=== PATIENT | female | born 1980 | race Caucasian/White ===

== ENCOUNTER → 2017-12-05 13:11 | Outpatient (CLI) | payer BC, SELFPAY ==
[2017-12-10 17:20] LABS: HPV Reflexed? NOT INDICATED
== END ==
PROVIDERS: Visit Provider Obstetrics & Gynecology
DX: Z12.4 Encounter for screening for malignant neoplasm of cervix (principal)
CPT/HCPCS: 88175; G0145

== ENCOUNTER → 2017-12-25 13:03 | Outpatient (CLI) | payer BC, SELFPAY ==
--- NOTE | 2017-12-25 | VUL_PTH ---
PATIENT: LEONARD VAZQUEZ LOC: [facility] U#:[id number] AGE/SX: 45/F ROOM: RE12/25/[address]: Dr. Antonio Machuca MD : 1980 BED: DIS: SPEC #: [id number] RECD: 12/26/17 08:04 STATUS: BRI SHANTHI #: [id number] PERLA: 12/25/17 00:[address]: Antonio Machuca DEPT: SURGICAL PATHOLOGY RECD BY: Luis Scales Tissues: Vulva, NOS Procedures: Special Stain Group I Surgery Specimen Level IV GMS Stain (control) HEADER OPERATION: Vulvar biopsy PRE-OP DIAGNOSIS: L91.0 TISSUE SUBMITTED: Vulvar biopsy MICROSCOPIC DIAGNOSIS Vulvar biopsy: Fragments of squamous mucosa with mild chronic inflammation. Special stain for fungi is negative for organisms; matched control is appropriate. SJ:erika 12/27/17 MICROSCOPIC DESCRIPTION Slides are reviewed. GROSS DESCRIPTION Received in fixative is one container labeled with the patient's name and designated vulvar biopsy. The specimen consists of two pieces of brothers mucosal tissue that in aggregate measure 1 x 0.5 x 0.3 cm. The entire specimen is submitted in one cassette. / SJ:erika 12/26/17 TC:3 CPT: 82835, 77992
== END ==
PROVIDERS: Visit Provider Obstetrics & Gynecology
DX: L91.0 Hypertrophic scar (principal)
CPT/HCPCS: 88305; 88312

== ENCOUNTER → 2019-05-26 15:16 | Outpatient (CLI) | payer BC, SELFPAY ==
[2019-05-26 14:34] VITALS: BMI 29.9
[2019-05-26 16:27] LABS: Absolute Lymphocyte Count 1.67 X10^3/uL (0.83-4.51); Absolute Neutrophil Count 6.4 X10^3/uL (2.0-7.7); Basophil# 0.09 X10^3/uL; Eosinophils% 2.3 % (0-5); Hematocrit 44.1 % (37-47); Hemoglobin 14.9 g/dL (12.0-15.0); Lymphocyte # 1.67 X10^3/ul (4.0); Lymphocyte % 18.8 % (19-41); Mean Corp Hgb Conc 33.8 g/dL (32-36); Mean Corpuscular Volume 88.9 fL (81-99); Mean Platelet Vol. 8.9 fl (6.2-12.0); Monocyte# 0.49 X10^3/uL; Monocyte% 5.5 % (0-10); NRBC Flagged by Analyzer 0 % (0-5); Neutrophil % 72.1 % (47-70); Platelet Count 279 K/mm3 (150-450); RBC Distribution Width CV 12.1 % (11.6-14.6); RBC Distribution Width SD 39.1 fl (35.1-43.9); Red Blood Count 4.96 M/mm3 (4.2-5.4); White Blood Count 8.9 K/mm3 (4.4-11.0)
[2019-05-26 16:51] LABS: T4 Free Direct 1.04 ng/dL (0.76-1.46); Thyroid Stim Hormone (TSH) 0.75 uIU/mL (0.358-3.74)
== END ==
PROVIDERS: Family Provider Internal Medicine; PCP Internal Medicine; Referring Provider Obstetrics & Gynecology; Visit Provider Obstetrics & Gynecology
DX: N93.9 Abnormal uterine and vaginal bleeding, unspecified (principal)
CPT/HCPCS: 36415; 84439; 84443; 85025

== ENCOUNTER → 2019-06-09 11:14 | Outpatient (CLI) | payer BC, SELFPAY ==
[2019-05-26 14:34] VITALS: BMI 29.9
--- NOTE | 2019-06-09 11:18 | US_ITS ---
STUDY: ULTRASOUND OF THE FEMALE PELVIS - COMPLETE REASON FOR EXAM: Female, 39 years old. Abnormal uterine bleeding. LMP: June 01, 2019 TECHNIQUE: Transabdominal and Transvaginal TECHNICAL QUALITY: Adequate. COMPARISON: None. FINDINGS: The uterus is anteverted and is in a midline position. The uterus measures 8.7 cm x 4.5 cm x 4.2 cm. There is a Nabothian cyst of the cervix. The endometrium measures 5.7 mm in thickness, and is hyperechoic. There is no demonstrated endometrial mass. There is no demonstrated myometrial mass. I.U.D. - The patient does not have an I.U.D. The right ovary is visualized. The right ovary measures 2.4 cm x 1.6 cm x 1.9 cm. There is no right ovarian cyst or ovarian mass. There is no visualized right adnexal mass or complex lesion. There is normal arterial and normal venous vascularity. The left ovary is visualized. The left ovary measures 1.9 cm x 2.1 cm x 2.1 cm. There is no left ovarian cyst or ovarian mass. There is no visualized left adnexal mass or complex lesion. There is normal arterial and normal venous vascularity. There is no fluid in the cul-de-sac. The pre void volume of the bladder was 416 ml. Polycystic ovary disease: No. US/Pelvic (Non ) IMPRESSION: Normal female pelvis. Electronically Signed: Saw Meade, at 10:18 EST , Service support ,
--- NOTE | 2019-06-09 11:18 | US_ITS ---
STUDY: ULTRASOUND OF THE FEMALE PELVIS - COMPLETE REASON FOR EXAM: Female, 39 years old. Abnormal uterine bleeding. LMP: June 01, 2019 TECHNIQUE: Transabdominal and Transvaginal TECHNICAL QUALITY: Adequate. COMPARISON: None. FINDINGS: The uterus is anteverted and is in a midline position. The uterus measures 8.7 cm x 4.5 cm x 4.2 cm. There is a Nabothian cyst of the cervix. The endometrium measures 5.7 mm in thickness, and is hyperechoic. There is no demonstrated endometrial mass. There is no demonstrated myometrial mass. I.U.D. - The patient does not have an I.U.D. The right ovary is visualized. The right ovary measures 2.4 cm x 1.6 cm x 1.9 cm. There is no right ovarian cyst or ovarian mass. There is no visualized right adnexal mass or complex lesion. There is normal arterial and normal venous vascularity. The left ovary is visualized. The left ovary measures 1.9 cm x 2.1 cm x 2.1 cm. There is no left ovarian cyst or ovarian mass. There is no visualized left adnexal mass or complex lesion. There is normal arterial and normal venous vascularity. There is no fluid in the cul-de-sac. The pre void volume of the bladder was 416 ml. Polycystic ovary disease: No. US/Transvaginal Non- IMPRESSION: Normal female pelvis. Electronically Signed: Saw Meade, at 10:18 EST , Service support ,
== END ==
PROVIDERS: Family Provider Internal Medicine; PCP Internal Medicine; Referring Provider Obstetrics & Gynecology; Visit Provider Obstetrics & Gynecology
DX: N93.9 Abnormal uterine and vaginal bleeding, unspecified (principal)
CPT/HCPCS: 76830; 76856; 93976

== ENCOUNTER 2020-02-25 21:20 | Emergency (ER) | payer BC, SELFPAY ==
[2019-12-03 14:58] VITALS: BMI 31.2
[2020-02-25 21:21] VITALS: BP 152/90; PULSE 85; RESP 16; TEMP 36.4; O2SAT 99; BMI 31.6
--- NOTE | 2020-02-25 21:47 | CT_ITS ---
STUDY: CT BRAIN WITHOUT CONTRAST REASON FOR EXAM: Female, 39 years old. INJURY,HIT IN LT SIDE OF FACE,BRUISING AND LACERATION RADIATION DOSAGE (If Supplied By Facility): CTDIvol = ( 44.99 ) mGy, DLP = ( 796.11 ) mGycm TECHNIQUE: Transaxial CT imaging of the brain was performed without administration of intravenous contrast material. Individualized dose optimization techniques were used for this CT. COMPARISON: No relevant priors. FINDINGS: Infraorbital facial emphysema is noted on the left. Negative for skull fracture. Normal size ventricles and extra-axial spaces for the patient''s age. Normal white matter tracts of the cerebral hemispheres. Normal basal ganglia and thalami. Normal brainstem. Normal cerebellum. There is no intracranial hemorrhage. There are no findings of an acute ischemic infarction. Normal visualized paranasal sinuses. CT/Brain/Head without Contrast IMPRESSION: Normal unenhanced CT scan of the brain. Negative for hemorrhage, hematoma or mass density. Negative for skull fracture. Negative for facial fracture identified in the [id number]. Infraorbital soft tissue emphysema is noted on the left. Electronically Signed: Mary Jane Nicole MD at 22:11 EDT , Service support ,
--- NOTE | 2020-02-25 21:47 | CT_ITS ---
STUDY: CT FACIAL BONES WITHOUT CONTRAST REASON FOR EXAM: Female, 39 years old. INJURY,HIT IN LT SIDE OF FACE,BRUISING AND LACERATION RADIATION DOSAGE (If Supplied By Facility): CTDIvol = ( 29.38 ) mGy, DLP = ( 562.15 ) mGycm TECHNIQUE: The patient was scanned in a multi detector CT scanner. Sagittal and coronal images were reconstructed. Individualized dose optimization techniques were used for this CT. COMPARISON: None. FINDINGS: Subcutaneous contusion of the left face and infraorbital emphysema. Normal orbital robledo and orbital contents. Normal nasal bones and anterior nasal spine. Normal facial bones. There is no demonstrated fracture. Normal visualized paranasal sinuses. CT/Sinus/Facial Bone IMPRESSION: Contusion of the left face and infraorbital emphysema on the left without a detected orbital or other facial fracture. Paranasal sinuses are clear on the left with no bleeding or fluid retention. Mucosal thickening in one right posterior sphenoethmoidal sinus. Electronically Signed: Mary Jane Nicole MD at 22:16 EDT , Service support ,
--- NOTE | 2020-02-25 21:48 | ED.DCSUM_ITS ---
History of Present Illness Chief Complaint: Head Injury Informant: Patient Narrative: Patient was hit in the face with a tractor hitch that came off while she was pulling a small trailer. This is on a long bar which is like a lever which hit her in the left side of her face. She has left periorbital swelling. She had no loss of consciousness. She not on blood thinners. She has a small laceration and swelling in that area. She also has a large scratch on the left arm. This is not deep and bleeding is controlled. Patient denies headache, nausea, vomiting, dizziness Past Medical History - Allergies and Home Meds Allergies/Adverse Reactions: Allergies No Known Allergies Allergy (Verified 02/25/20 21:23) Primary Care Physician: Kay Smith MD [Primary Care Provider] - Prior records reviewed: Yes Lives: Spouse/ Significant Other Smoking Status: Never smoker Alcohol: None Drugs: None Review of Systems General: Denies: Chills, Fever Eyes: Denies: Visual changes - bilaterally, Diplopia ENT: Reports: - - Facial contusion under left eye. Denies: Rhinorrhea, Sore throat Cardiovascular: Denies: Chest pain, Palpitations Respiratory: Denies: Dyspnea, Cough, Dyspnea on exertion Gastrointestinal: Reports: Abdominal pain. Denies: Nausea, Vomiting, Diarrhea, Melena, Hematochezia Skin: Reports: - - 15 cm superficial abrasion to the left upper extremity. Small contusion abrasion under the left eye Neurological: Denies: Headache, Parasthesia Physical Exam Vital Signs/Narrative: Vital Signs Temp Pulse Resp BP Pulse Ox 02/25/20 21:21 97.6 F L 85 16 152/90 H 99 Inital Vital Signs reviewed: Yes General: Well nourished, Well developed Head: Normocephalic, Trauma - Facial contusion with swelling approximately 4 cm circular under left eye. Superficial abrasion noted to be in the center. It is tender to palpation. Eyes: Perrl, EOMI, - - Patient able to count fingers bilaterally. No extraocular muscle entrapment. ENT: - - Nasal bone trauma. No epistaxis. Cardiovascular: Regular rate, Regular rhythm Respiratory: No distress Skin: - - No swelling noted under left eye. 15 cm abrasion left upper extremity. Neurological: Alert, Oriented x3, Cranial nerves II-XII grossly intact, Normal Strength, Normal Sensation Psychological: Normal affect Diagnostic/Tx/Re-eval Clinical Impression(s) from Imaging Studies Brain CT 02/25/20 21:47 IMPRESSION: Normal unenhanced CT scan of the brain. Negative for hemorrhage, hematoma or mass density. Negative for skull fracture. Negative for facial fracture identified in the [id number]. Infraorbital soft tissue emphysema is noted on the left. Electronically Signed: Mary Jane Nicole MD at 22:11 EDT , Service support , Facial/Sinus 02/25/20 21:47 IMPRESSION: Contusion of the left face and infraorbital emphysema on the left without a detected orbital or other facial fracture. Paranasal sinuses are clear on the left with no bleeding or fluid retention. Mucosal thickening in one right posterior sphenoethmoidal sinus. Electronically Signed: Mary Jane Nicole MD at 22:16 EDT , Service support , - Medical Decision Making Patient presented after significant facial trauma concerned for possible fracture. She had CT maxillofacial as well as CT brain which were both negative for acute intercranial process or orbital floor fracture. There is noted swelling on the CT and emphysema in this area. Patient was given Vicodin after CT was negative. He is counseled on icing the area of concern. She is counseled on wound care for her abrasions. Her tetanus is up-to-date. She will return for any new or worsening symptoms. Impression: 1. Left cheek contusion 2. Abrasion to left upper extremity 3. Left cheek abrasion ED Disposition - Plan for ED Patient: Disposition: Home or Assisted Living Diagnosis: Facial trauma, Abrasion Instructions: ED Abrasion, ED CONTUSION Face No Wake Up], ED Head Injury Adult Prescriptions: Hydrocodone/Acetaminophen [Streetman 5-325 Tablet] 1 ea PO Q6H PRN PRN #7 tab PRN Reason: Pain/Inflammation Prescription Printed Referrals: Kay Smith MD [Primary Care Provider] -
[2020-02-25] MEDS: HYDROcodone Bitartrate/Apap 5/325 Tablet PO (23:11)
== END 2020-02-25 23:16 | disposition home or self-care (01) ==
PROVIDERS: Emergency Provider Student in an Organized Health Care Education/Training Program; PCP Internal Medicine
DX: S00.83XA Contusion of other part of head, initial encounter (principal); S40.812A Abrasion of left upper arm, initial encounter; W20.8XXA Other cause of strike by thrown, projected or falling object, initial encounter; Y93.9 Activity, unspecified; Y92.9 Unspecified place or not applicable; Y99.9 Unspecified external cause status; Z79.899 Other long term (current) drug therapy
CPT/HCPCS: 70450; 70486; 99282

== ENCOUNTER 2023-03-17 18:16 | Emergency (ER) | payer BC, SELFPAY ==
[2023-03-17 18:18] VITALS: BP 176/99; PULSE 109; RESP 18; TEMP 37.3; O2SAT 99; BMI 34.6
--- NOTE | 2023-03-17 18:39 | EDS_ITS ---
HPI History of Present Illness Chief Complaint: Back Detail of Chief Complaint: Lower lumbar back pain. Informant: patient Onset/Context/Timing Onset: Today Context: Gradual Onset Injury: - (No trauma.) Timing: Continuous Quality: Aching Location: Lumbar and Buttock Current Severity: 10/10 Maximum Severity: 10/10 Worsened by: improves with Movement Relieved by: Remaining Still Associated Symptoms Associated Symptoms: Tingling; Negative for Abdominal Pain, Dysuria, Unable to Ambulate, Unable to Transfer, Urinary Retention, Urinary Incontinence, Constipation or Fecal Incontinence Narrative Narrative: 42-year-old female prior herniated disc. Has never had back surgery. Did have back injections. Saw a [facility] spine surgeon in the past. Denies any fall injury or trauma. Awoke this morning with lower lumbar back pain radiating to both buttocks. Denies weakness or lower extremities. No numbness. No bowel or bladder incontinence. No fever. No fall or trauma. Prior similar symptoms: Yes and With Prior Back Pain Recent Illness/Hospitalization: No PFSH PFS Medical History (Updated 03/17/23 @ 18:[address] Avtar Briscoe MD) Acne Depression with anxiety Hypertension Home Medications sertraline 50 mg tablet (Zoloft) 100 mg PO DAILY 05/26/19 [History Last Taken Unknown] spironolactone 100 mg tablet 100 mg PO DAILY 05/26/19 [History Last Taken Unknown] buspirone 5 mg tablet 5 mg PO BID 02/25/20 [History Last Taken Unknown] hydrocodone-acetaminophen 5-325mg 5mg-325mg 1 ea PO Q6H PRN PRN Pain/Inflammation #7 tabs 02/25/20 [Rx Last Taken Unknown] azithromycin 250 mg tablet See Rx Instructions PO .COMPLEX URI #6 tabs 08/20/21 [Rx Last Taken Unknown] ondansetron 4 mg disintegrating tablet 4 mg PO Q8H PRN nausea and vomiting #7 tabs 03/17/23 [Rx Last Taken Unknown] oxycodone-acetaminophen 5 mg-325 mg tablet 1 tab PO Q4H PRN pain 5 days #20 TABLETS 03/17/23 [Rx Last Taken Unknown] prednisone 20 mg tablet 40 mg (2 x 20 mg) PO DAILY 7 days #14 tabs 03/17/23 [Rx Last Taken Unknown] Allergy/AdvReac Type Severity Reaction Status Date / Time No Known Allergies Allergy Verified 03/17/23 18:18 Family History Grandmother Diabetes Ovarian cancer Aunt Breast cancer Cancer Surgical History breast cyst removed Encounter for Essure implantation H/O sigmoidoscopy s/p right shoulder cyst removal Social History Smoking Status: Never smoker alcohol intake: never substance use type: does not use caffeine: Yes what type of physical activity do you participate in: none seatbelt use: always do you feel safe at home: Yes additional social history: Pxmnrkh-Iagkq-Pwrciwpcs 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 Review of Systems ROS Unobtainable: Denies due to encephalopathy Constitutional Constitutional ED: Denies chills or fever(s) Eyes Eyes: Denies blurry vision ENT ENT ED: Denies ear pain Cardiovascular Cardiovascular: Denies chest pain Respiratory/Chest Respiratory/Chest: Denies dyspnea Gastrointestinal Gastrointestinal: Denies abdominal pain Genitourinary Genitourinary ED: Denies dysuria or hematuria Musculoskeletal Musculoskeletal: Reports back pain; Denies arthralgias, myalgias or neck pain Integumentary Denies abscess or Abrasions Neurologic Neurologic: Denies headache(s) Psychiatric Psychiatric: Denies anxiety Endocrine Endocrinology: Denies cold intolerance Hematologic/Lymphatic Hematologic/Lymphatic: Denies easy bleeding Allergic/Immunologic Allergic/Immunologic ED: Denies mouth swelling EXAM Physical Exam Narrative Exam Narrative: 42-year-old female vital signs stable afebrile. Is awoken in the room she is standing up beside the bed holding the railing complaining of lower back pain. seated at bedside. Vital signs are stable and afebrile. HEENT exam unremarkable. Neck nontender. Lungs clear to auscultation. Heart regular rhythm no murmur. Chest wall nontender. Abdomen soft nontender. No pulsatile mass. Back reproducible pain on lower lumbar spine. No ecchymosis or bruising. No redness or warmth. No paraspinal soft tissue tenderness. SI joints are nontender. She has normal motor strength in both upper and lower extremities. She is able to raise up on her toes bilaterally. No cauda equina. No saddle anesthesia. Normal medial thigh sensation. Neurologically she is awake and alert with no focal motor or sensory deficits. Const Vital Signs: 03/17/23 18:18 Temperature 99.1 F Temperature Source Temporal Pulse Rate 109 H Respiratory Rate 18 Blood Pressure 176/99 H Blood Pressure Mean 124 Pulse Ox 99 Oxygen Delivery Method Room Air Positive well nourished and well developed; Negative for cachectic, contractures or unkempt General Appearance ED: well developed; Negative for unkempt, cachectic, contr actures, NAD or pallor Nutritional Appearance: Negative for cachectic HEENT Reports moist mucous membranes; Denies dry mucous membranes Negative for trauma or tenderness Mouth ED: No dry mucous membranes Mouth: No dry mucous membranes Eyes PERRL and EOMs intact bilaterally General Eye ED: Negative for pale conjunctiva, scleral icterus or other Neck no lymphadenopathy, supple and no JVD General: Negative for tenderness Thyroid: Negative for other Chest Wall Chest: Negative for other Resp normal respiratory effort and clear to auscultation bilaterally Effort and Inspection: Negative for pain with movement Auscultation: Negative for rales, rhonchi or wheezes Cardio regular rhythm, S1 normal heart sound, S2 normal heart sound and no murmurs; Negative for regular rate Rate: tachycardic GI normal to inspection, nondistended, normoactive bowel sounds, soft to palpation, non-tender, non-distended and no masses Inspection: Negative for abdominal distention Auscultation: Negative for hyperactive bowel sounds Palpation: Negative for tender, guarding, mass, pulsatile mass or rebound tenderness present Back/Spine normal to inspection; Negative for no thoracic nor lumbar tenderness General Back: Negative for CVA tenderness Cervical Spine: Negative for cervical spine tenderness and Negative for paracervical muscle tenderness Thoracic Spine / Upper Back: Negative for paraspinal muscle tenderness Lumbar Spine / Lower Back: ROM limited and straight leg raise negative bilaterally Extremity normal to inspection and no clubbing, cyanosis or edema Extremity Narrative: Both lower extremities are neurovascular intact. 5 and 5 motor strength. No cauda equina. No saddle anesthesia. Normal medial thigh sensation. General Extremety ED: Negative for edema, tenderness or other findings General Extremity: Negative for edema or other findings Neuro oriented x3 and no sensory deficits noted Sensorium / Orientation: alert; Negative for confused, lethargic or stuporous Sensory Exam: No other Motor Exam: strength 5/5 throughout; Negative for strength abnormal Psych mental status grossly normal Appearance: Negative for unkempt Attitude: No agitated Mood & Affect: Negative for depressed Skin no rashes or lesions noted and no wounds General Skin Exam: Negative for jaundice or pallor Lesions: No lesion noted Rashes: No rashes noted Trauma: Negative for abrasion or puncture Wounds: Negative for wounds noted Image ED - Body Diagram Man: 1. Reproducible lumbar back pain. MDM MDM MDM Narrative Medical decision making narrative: Patient with acute lumbar pain today. No injury or trauma. Prior history of herniated disc. Her lower extremities are neurovascular intact with normal motor strength and sensation. No cauda equina or saddle anesthesia. MRI is not available today. She does not need plain films. She will be treated with IV Dilaudid, Toradol, Zofran and p.o. prednisone and reassess. Repeat exam patient still in pain but much more comfortable at 8 PM. Both lower extremities remain neurovascular intact. Again no signs of cauda equina. Lengthy discussion with patient and her . She is comfortable being discharged home. Outpatient follow-up with local spine physician Dr. Phan. Percocet for pain. Prednisone 40 mg a day for 1 week. She knows to return if she gets bowel or bladder incontinence or retention or leg weakness or severe numbness. History & Record Review Discussion w/independent historian: Patient and Family Additional record(s) reviewed:: Prior inpatient record, Prior outpatient record, Prior ED visit and Prior labs Discharge Plan Triage Chief Complaint: Back ED Provider: Avtar Briscoe Dx/Rx/DC Orders Clinical Impression: Acute back pain, Acute herniated disc Instructions: ED Herniated Intervertebral Disk Prescriptions: New prednisone 20 mg tablet 40 mg PO DAILY 7 Days Qty: 14 0RF ondansetron 4 mg tablet,disintegrating 4 mg PO Q8H PRN (Reason: nausea and vomiting) Qty: 7 0RF oxycodone-acetaminophen [oxycodone-acetaminophen] 5-325 mg tablet 1 tab PO Q4H PRN (Reason: pain) 5 Days Qty: 20 0RF No Action sertraline [Zoloft] 50 mg tablet 100 mg PO DAILY spironolactone 100 mg tablet 100 mg PO DAILY azithromycin 250 mg tablet See Rx Instructions PO .COMPLEX Qty: 6 0RF Rx Instructions: For 250 mg dose pack: take 500 mg today (day 1), then 250 mg for 4 days (days 2-5) PO buspirone 5 MG tablet 5 mg PO BID hydrocodone-acetaminophen 1 EACH tablet 1 ea PO Q6H PRN PRN (Reason: Pain/Inflammation) Qty: 7 0RF Primary Care Provider: Kay Smith Referrals: Everton Phan DO [Med Staff - Active Staff] - As soon as possible Kay Smith MD [[facility]] - As soon as possible Activity Restrictions/Additional Instructions: Prednisone daily 40 mg a day starting tomorrow. Pain medications as needed. Plenty of fluids and fiber to prevent constipation. Stool softener as needed. Call and follow-up with the spine physician Dr. Everton Phan for further evaluation. If this is not improving you may need an MRI. If you develop worsening pain, fever, leg weakness or bowel or bladder incontinence or unable to urinate or move your bowels you need to return. Disposition Disposition: Home, Self Care
[2023-03-17] MEDS: Ondansetron 4 MG/2 ML Vial IV (18:49)
[2023-03-17] MEDS: predniSONE 20 MG Tablet 60 MG PO (18:49)
[2023-03-17] MEDS: Ketorolac 30 MG/ML Syringe IV (18:49)
[2023-03-17] MEDS: HYDROmorphone 1 MG/ML Syringe IV (18:49)
[2023-03-17] MEDS: HYDROmorphone 0.5 MG/0.5 ML SYRINGE IV (21:31)
== END 2023-03-17 21:45 | disposition home or self-care (01) ==
PROVIDERS: Emergency Provider Emergency Medicine; PCP Internal Medicine; Visit Provider Emergency Medicine
DX: M54.50 Low back pain, unspecified (principal); I10 Essential (primary) hypertension; Z79.899 Other long term (current) drug therapy
CPT/HCPCS: 96374; 96375; 96376; 99284; A4216; J2405

== ENCOUNTER 2023-07-13 12:38 | Emergency (ER) | payer BC, SELFPAY ==
[2023-07-13 12:39] VITALS: BP 162/92; PULSE 80; RESP 14; TEMP 36.8; O2SAT 99; BMI 36.0
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
[2023-07-13] MEDS: Ketorolac 60 MG/2 ML Vial IM (13:13)
[2023-07-13] MEDS: predniSONE 20 MG Tablet 60 MG PO (13:13)
[2023-07-13 13:19] VITALS: RESP 14
== END 2023-07-13 13:32 | disposition home or self-care (01) ==
PROVIDERS: Emergency Provider Emergency Medicine; PCP Internal Medicine; Visit Provider Emergency Medicine
DX: M54.9 Dorsalgia, unspecified (principal); I10 Essential (primary) hypertension; Z87.39 Personal history of other diseases of the musculoskeletal system and connective tissue; F41.8 Other specified anxiety disorders; Z79.899 Other long term (current) drug therapy
CPT/HCPCS: 96372; 99282

== ENCOUNTER → 2023-08-21 | Outpatient (CLI) | payer BC, SELFPAY ==
--- NOTE | 2023-08-21 08:15 | MRI_ITS ---
HISTORY: Low back pain. TECHNIQUE: Multiplanar and multisequence MR images of the lumbar spine were obtained without intravenous contrast. 142 images. COMPARISON: XR 07/23/2023. FINDINGS: VERTEBRAE: Vertebral body heights maintained. Mild degenerative endplate changes of T11-12, L4-5, and L5-S1. No other significant bone marrow signal abnormality. ALIGNMENT: No anterior or posterior subluxation. CONUS: Normal morphology and position of the conus medullaris at L1. INTERVERTEBRAL DISCS: T11-12: Mild right paracentral disc protrusion resulting in mild central canal stenosis and right foraminal narrowing. T12-L1, L1-2, L2-3, L3-4: No significant signal abnormality in the disc. No significant posterior disc protrusion, central canal stenosis, or foraminal narrowing. L4-5: Mild disc bulge with superimposed right paracentral disc protrusion in combination with facet arthropathy resulting in right L5 nerve root impingement, mild-moderate central canal stenosis, mild-moderate right, and mild left foraminal narrowing. L5-S1: Mild posterior disc bulge osteophyte complex with facet arthropathy resulting in mild central canal stenosis and moderate bilateral foraminal narrowing with right L5 nerve root impingement and left L5 nerve root abutment. SOFT TISSUES: No paraspinal fluid collection. MRI/Spine Lumbar (Routine) IMPRESSION: Multilevel degenerative disc disease resulting in mild-moderate spinal canal stenosis, right nerve root impingement, and right greater than left foraminal narrowing of L4-5. Mild spinal canal stenosis and moderate bilateral foraminal narrowing of L5-S1 with bilateral nerve root impingement/abutment as above. Electronically Signed: Lexi Bess MD at 10:26 EST ,
== END | disposition home or self-care (01) ==
PROVIDERS: PCP Internal Medicine; Referring Provider Orthopaedic Surgery Orthopaedic Surgery of the Spine; Visit Provider Orthopaedic Surgery Orthopaedic Surgery of the Spine
DX: M54.16 Radiculopathy, lumbar region (principal); M54.50 Low back pain, unspecified
CPT/HCPCS: 72148

== ENCOUNTER 2023-09-02 10:00 | Outpatient (RCR) | payer BC, SELFPAY ==
--- NOTE | 2023-08-07 17:16 | HP.PTEVAL ---
Patient's Visit Information Visit Information Visit Information: LEONARD VAZQUEZ is a 43 year old F referred to Physical Therapy by Dr. Rojas Villagomez MD with a diagnosis of RADICULOPATHY LUMBAR. Date of Evaluation: 08/07/23 Physical Therapist: Joni Ahuja, PT, Cert MDT, OCS Visit Plan Frequency: 2x /Week Duration: 4 Weeks Plan: PT INTERVETIONS DLS ,POSTURAL EX'S ,LE FLEXABILITY ( ANR STRETCHING) ,MODALTIES AND ACTIVITY MODIFICATION Subjective Subjective: This 43 y/o female presents to physical therapy with lumbar radiculopathy. Patient has had lumbar radicular right leg ~ 13 years. Patient has had intermittent episode of increase pain. Had HNP lumbar by bending forward 2015 and initially had MRI showed HNP. 2009 prior as well . 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 Pain got better then had severe pain 2 weeks severe pain unable to move missed 2 weeks of work . Patient seen pain management had epidural injections helped pain last Saturday . Patient graduated from [employer]. Patient seen DR Villagomez DDD Lumbar L4-5,L5 -S1. Recommended PT and wants MRI. Aggravating factors bending ,lifting ,extended standing ,walking . Alleviating factors heat and rest. Medication muscle relaxers. Coughing/sneezing+ . Bowel/bladder -. Denies paresthesia/tingling. Pain affects sleeping. No abnormal night pain. Patient has pain affected QOL and function. Patient has had PT in past. Patient goals to decrease pain. SOCIAL: VOCATION: [employer] Pain Right Back: Pain Intensity (Out of 10): 1 Pain Intensity Range: 10 Objective Objective: POSTURE: mild forward posture GAIT: reciprocal pattern NEURO: denies paresthesia/tingling , reflexes L3-4,L4-5 2/3 LEFT ,1/3 RIGHT SYMMYTIES: align PALPATION: unremarkable LUMBAR ROM: flexion min loss ,extension mod loss pain ,side glides mid loss FLEXABILITY: hamstrings min tight + ANR Special Tests Thoracic Lying: Prone Extension - Mechanical Response: No effect L/S Slump test left side: Negative L/S Slump test right side: Positive L/S Left Straight Leg Raise: Negative L/S Right Straight Leg Raise: Negative Lumbar Standing: Flexion - Mechanical Response: No effect Lumbar Standing: Flexion - Symptoms During Testing: Increases Lumbar Standing: Flexion - Symptoms After Testing: No worse Lumbar Standing: Extension - Mechanical Response: No effect Lumbar Standing: Extension - Symptoms During Testing: Increases Lumbar Standing: Extension - Symptoms After Testing: No worse Lumbar Standing: Right Side Glides - Mechanical Response: No effect Lumbar Standing: Right Side Gum Spring - Symptoms During Testing: Increases Lumbar Standing: Right Side Gum Spring - Symptoms After Testing: No worse Lumbar Standing: Left Side Gum Spring - Mechanical Response: No effect Lumbar Standing: Left Side Gum Spring - Symptoms During Testing: No effect Lumbar Standing: Left Side Gum Spring - Symptoms After Testing: No effect Lumbar Lying: Flexion - Mechanical Response: No effect Lumbar Lying: Flexion - Symptoms During Testing: Increases Lumbar Lying: Flexion - Symptoms After Testing: No worse Lumbar Lying: Extension - Mechanical Response: No effect Lumbar Lying: Extension - Symptoms During Testing: Increases Lumbar Lying: Extension - Symptoms After Testing: No worse Balance/Special Test Scores Oswestry Low Back Score: 28 Goals Goal 1:: Patient to be I with HEP Goal Time Frame: 4-6 Weeks Goal 2:: Patient to improve lumbar ROM for function of recovery for job demnads Goal Time Frame: 4-6 Weeks Goal 3:: Patient to demonstrate 50% improvement with less pain and improved function Goal Time Frame: 4-6 Weeks Goal 4:: Patient to improve back oswestry score by 5 points to improve QOL and function. Goal Time Frame: 4-6 Weeks Goal 5:: Patient be able to perform housework and job demands without pain Goal Time Frame: 4-6 Weeks Rehabilitation Potential Physical Therapy Diagnosis: This patient has lumbar radicular symptom from h/o HNP but may have increase stenosis due to extension increase symptoms pain increases with motion testing and positioning affects walking/standing and lifting impairs job and ADLS thus benefit from skilled PT Rehabilitation Potential: Good Anticipated Interventions Patient/Client Instruction: Educate patient on: Condition and Plan of Care For the Purpose of:: To decrease pain, To increase ROM, To improve muscle performance and motor function, To improve ability to perform ADL's, To increase tolerance to activity/condition/position, To improve ability of physical actions for home/community/work/leisure, To improve health of tissue, To decrease soft tissue restriction, To increase flexibility/ROM, To improve safety with gait and To reduce risk of recurrence Therapeutic Exercise to Include: Strength training, Endurance training, Balance training, Postural training, Flexibilty training, Dynamic Lumbar Stabilization and Dante Exercises For the Purpose of:: To decrease pain, To increase ROM, To improve muscle performance and motor function, To improve ability to perform ADL's, To increase tolerance to activity/condition/position, To improve ability of physical actions for home/community/work/leisure, To improve health of tissue, To decrease soft tissue restriction, To increase flexibility/ROM, To prevent re-injury and To improve tolerance to ADL's TENS: Yes IF ES: Yes Cryotherapy (ice pack, ice massage): Yes Thermo therapy (hot pack): Yes For the Purpose of:: To decrease pain, To increase ROM, To increase oxygenation perfusion, To improve health of tissue and To decrease soft tissue restriction Text: Thank you for the opportunity to evaluate your patient. For Medicare and Medicare HMO plans, please review the plan of care and approve it. It will need to be FAXED BACK to us at [phone] for Medicare purposes. For Medicare only, by signing this I certify the plan of care. Please let me know if there are questions or concerns regarding this plan of care. Physician Signature: Date:
--- NOTE | 2023-11-18 17:27 | HP.PTDCSUM ---
Discharge Summary D/C summary: It has been my pleasure to treat LEONARD VAZQUEZ referred by Dr. Rojas Villagomez MD, with the diagnosis of RADICULOPATHY LUMBAR for a total of 4 visit(s). Discharge Date: Please see the following information for a summary of their discharge status. Subjective Subjective: Doing okay MRI was reviewed Pain Right Back: Pain Intensity (Out of 10): 2 Overall Improvement % Improvement: 50 Objective Objective/Function: Did well with progression DLS and postural ex's no pain appropriate fatigue Reviewed MRI with patient Goals Goal 1:: Patient to be I with HEP Goal Progress: Goal Met Goal 2:: Patient to improve lumbar ROM for function of recovery for job demnads Goal Progress: Goal Met Goal 3:: Patient to demonstrate 50% improvement with less pain and improved function Goal Progress: Goal Met Goal 4:: Patient to improve back oswestry score by 5 points to improve QOL and function. Goal Progress: Goal Met Goal 5:: Patient be able to perform housework and job demands without pain Plan Plan: D/C D/C Information d/c sentence: If there are questions or concerns regarding this patient's physical therapy, please feel free to call me at [phone]. Thank you for the referral of this patient. Sincerely, Joni Ahuja, PT, Cert MDT, OCS Balance/Gait/Functional tests Balance/Special Test Scores Oswestry Low Back Score: 4 Improvement % Improvement: 50
== END 2023-09-02 19:00 | disposition home or self-care (01) ==
LOC: PT 10:00
PROVIDERS: PCP Internal Medicine; Referring Provider Orthopaedic Surgery Orthopaedic Surgery of the Spine; Visit Provider Orthopaedic Surgery Orthopaedic Surgery of the Spine
DX: M54.16 Radiculopathy, lumbar region (principal)
CPT/HCPCS: 97110; 97162

== ENCOUNTER → 2024-07-23 | Outpatient (CLI) | payer BC, SELFPAY ==
--- NOTE | 2024-07-23 13:39 | RAD_ITS ---
STUDY: X-RAY CHEST REASON FOR EXAM: Female, 44 years old. Cough with fever TECHNIQUE: PA and lateral views of the chest. COMPARISON: Comparison is made with prior study dated October 04, 2013. FINDINGS: The lungs are clear and expanded. There is no demonstrated pleural abnormality. Normal size heart. Normal mediastinum and angelito. Normal visualized pulmonary arteries. Normal visualized aortic arch and descending thoracic aorta. Normal visualized thoracic spine. Normal visualized ribs, clavicles, and shoulders. There is no demonstrated abnormality of the visualized soft tissue structures of the upper abdomen. RAD/Chest PA and Lateral IMPRESSION: Normal x-ray examination of the chest. Electronically Signed: Saw Meade MD at 15:02 [facility] ,
== END | disposition home or self-care (01) ==
PROVIDERS: PCP Internal Medicine; Referring Provider Physician Assistant Surgical; Visit Provider Physician Assistant Surgical
DX: J20.9 Acute bronchitis, unspecified (principal)
CPT/HCPCS: 71046

== ENCOUNTER → 2024-10-08 | Outpatient (CLI) | payer BC, SELFPAY ==
[2024-10-13 13:08] LABS: HPV APTIMA, High Risk Negative (Negative)
== END | disposition home or self-care (01) ==
LOC: BWCLAB 09:58
PROVIDERS: PCP Internal Medicine; Referring Provider Nurse Practitioner Family; Visit Provider Nurse Practitioner Family
DX: Z12.4 Encounter for screening for malignant neoplasm of cervix (principal)
CPT/HCPCS: 87624; 88175; G0145

== ENCOUNTER → 2024-12-07 | Outpatient (CLI) | payer BC, SELFPAY ==
--- NOTE | 2024-12-07 10:00 | BI_ITS ---
EXAM: SCRN MAMM (CAD)W/NAYE BILAT 12/07/2024 CLINICAL HISTORY: F, Age 44 y/o , SCREEN FOR BREAST CANCER TECHNIQUE: Bilateral screening digital breast tomosynthesis with 2D and 3D images. Computer aided detection. COMPARISON: Prior exam(s) dated 05/20/2023. FINDINGS: TISSUE DENSITY: The breast tissue is composed of scattered area of fibroglandular density. Bilateral Breast Mammographic Findings: No significant masses, calcifications or other abnormalities are identified. BI/SCRN MAMM (CAD)W/NAYE BILAT IMPRESSION: Right Breast: BIRADS 1 NEGATIVE. Left Breast: BIRADS 1 NEGATIVE. OVERALL FINAL ASSESSMENT: BIRADS 1 NEGATIVE. RECOMMENDATION: Routine annual follow-up in 1 Year A letter with findings and recommendations will be mailed to the patient. Reading Location: [facility]
== END | disposition home or self-care (01) ==
PROVIDERS: PCP Internal Medicine; Referring Provider Nurse Practitioner Family; Visit Provider Nurse Practitioner Family
DX: Z12.31 Encounter for screening mammogram for malignant neoplasm of breast (principal)
CPT/HCPCS: 77063; 77067